=== PATIENT | female | born 1970 | race Caucasian/White ===

== ENCOUNTER 2019-02-09 18:07 | Emergency (ER) | payer BC ==
[~2019-02-09] VITALS: Ht 165.1 cm; Wt 109.0 kg
[2019-02-09 18:35] VITALS: BP 138/77
[2019-02-09] MEDS ORDERED: HYDROcodone/acetaminophen 5mg/325mg tablet PO ONE (20:40)
--- NOTE | 2019-02-09 22:34 | NUR ---
PATIENT TRIPPED AND FELL. PAIN LEFT WRIST. NO FX. DISCHARGE TO HOME WITH FLU INST. NORCO GIVEN FOR PAIN. PATIENT IS COOPERATIVE, EXHIBITS UNDERSTANDING OF DISCH INST.
== END 2019-02-09 22:38 | disposition home or self-care (01) ==
LOC: ER 18:08
DX: S60.212A Contusion of left wrist, initial encounter (principal); W18.49XA Other slipping, tripping and stumbling without falling, initial encounter; Y93.89 Activity, other specified; Y92.89 Other specified places as the place of occurrence of the external cause; Y99.9 Unspecified external cause status
CPT/HCPCS: 29125; 73110; 99283